=== PATIENT | female | born 1950 | race Caucasian/White ===

== ENCOUNTER → 2020-07-24 | Day surgery (SDC) | payer MEDICARE ==
[~2020-07-24] MED LIST: CALCIUM PO; MOBIC7.5 MG PO; PROPRANOLOL HCL10 MG PO; PROTONIX 40 MG40 M1 PO; SERTRALINE HCL25 MG PO; VITAMIN B-121000 MCG PO; VITAMIN D PO; VITAMIN D325 MC6 PO
== END | disposition home or self-care (01) ==
LOC: OR 10:43 → EDSTATUS 16:50
PROVIDERS: Internal Medicine Gastroenterology
PROC: 0DB78ZX Excision of Stomach, Pylorus, Via Natural or Artificial Opening Endoscopic, Diagnostic (ICD-10-PCS; 2020-07-24)
PROC: 0DB68ZX Excision of Stomach, Via Natural or Artificial Opening Endoscopic, Diagnostic (ICD-10-PCS; principal; 2020-07-24 11:55)
DX: K21.00 Gastro-esophageal reflux disease with esophagitis, without bleeding (principal); K44.9 Diaphragmatic hernia without obstruction or gangrene; K26.9 Duodenal ulcer, unspecified as acute or chronic, without hemorrhage or perforation; F41.9 Anxiety disorder, unspecified; E55.9 Vitamin D deficiency, unspecified; G25.0 Essential tremor; F32.9 Major depressive disorder, single episode, unspecified; M17.11 Unilateral primary osteoarthritis, right knee; E04.2 Nontoxic multinodular goiter; D72.819 Decreased white blood cell count, unspecified; D69.6 Thrombocytopenia, unspecified; M25.80 Other specified joint disorders, unspecified joint; R73.03 Prediabetes; E78.5 Hyperlipidemia, unspecified; E66.3 Overweight; Z68.28 Body mass index [BMI] 28.0-28.9, adult; Z20.822 Contact with and (suspected) exposure to COVID-19; Z88.2 Allergy status to sulfonamides; Z79.899 Other long term (current) drug therapy; Z87.11 Personal history of peptic ulcer disease
CPT/HCPCS: J2001; J2704; J7040

== ENCOUNTER → 2021-02-12 | Outpatient (CLI) | payer MEDICARE | LOC: KOH-I 09:45 → US 13:30 | DX: R29.818 Other symptoms and signs involving the nervous system (principal); R51.9 Headache, unspecified; H53.9 Unspecified visual disturbance; E78.5 Hyperlipidemia, unspecified; G45.9 Transient cerebral ischemic attack, unspecified; G31.9 Degenerative disease of nervous system, unspecified; R90.89 Other abnormal findings on diagnostic imaging of central nervous system; I65.23 Occlusion and stenosis of bilateral carotid arteries | CPT/HCPCS: 70544; 70551; 93880 ==